=== PATIENT | male | born 1970 | race Caucasian/White ===

== ENCOUNTER 2022-07-17 06:17 | Emergency (ER) | payer OTHER, SELFPAY ==
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
[2022-07-17 06:15] VITALS: BP 99/69; PULSE 55; RESP 18; O2SAT 99
[2022-07-17] MEDS: ACETAMINOPHEN 500 MG TABLET 1000 MG PO (06:27)
[2022-07-17] MEDS: TETANUS,DIPHTHERIA,AC PERTUSSIS ADULT (0.5 ML) BOOSTRIX IM (06:28)
--- NOTE | 2022-07-17 06:33 | ECG_ITS ---
Measurements Intervals [place] Rate: 46 P: 42 NV: 157 QRS: 23 QRSD: 107 T: 18 QT: 408 QTc: 360 Interpretive Statements SINUS BRADYCARDIA NO PREVIOUS ECG AVAILABLE FOR COMPARISON Electronically Signed On 07-17-2022 14:43:39 CDT by Trae Dyson M.D.
--- NOTE | 2022-07-17 07:10 | PC.NURSE ---
report from lan correia.
== END 2022-07-17 07:28 | disposition home or self-care (01) ==
LOC: ANHED 07:18
PROVIDERS: Emergency Provider Emergency Medicine
DX: S69.92XA Unspecified injury of left wrist, hand and finger(s), initial encounter (principal); S80.12XA Contusion of left lower leg, initial encounter; S80.11XA Contusion of right lower leg, initial encounter; Z23 Encounter for immunization; Z98.84 Bariatric surgery status; F17.200 Nicotine dependence, unspecified, uncomplicated; M19.032 Primary osteoarthritis, left wrist; M17.0 Bilateral primary osteoarthritis of knee; M19.042 Primary osteoarthritis, left hand; R00.1 Bradycardia, unspecified; V49.40XA Driver injured in collision with unspecified motor vehicles in traffic accident, initial encounter
CPT/HCPCS: 73110; 73130; 73590; 90471; 90715; 93005; 99284; A9270